=== PATIENT | male | born 1980 | race Caucasian/White ===

== ENCOUNTER 2017-06-29 19:37 | Emergency (ER) | payer MEDICAID, SELFPAY ==
[2017-06-29 19:38] VITALS: PULSE 121; RESP 18; TEMP 36.5; O2SAT 98; BMI 19.8
[2017-06-29] MEDS: Ziprasidone IM 20 MG/ML VIAL IM (20:00)
[2017-06-29 20:43] LABS: Absolute Lymphocyte Count 3.52 X10^3/ul (0.83-4.51); Absolute Neutrophil Count 6.4 X10^3/uL (2.0-7.7); Basophil# 0.02 X10^3/uL; Basophil% 0.2 % (0-1); Eosinophil# 0.09 X10^3/uL; Eosinophils% 0.8 % (0-5); Hematocrit 41.6 % (40-54); Hemoglobin 14.3 g/dl (13.0-16.5); Lymphocyte # 3.52 X10^3/ul (4.0); Lymphocyte % 32.4 % (19-41); Mean Corp Hgb Conc 34.4 g/gl (32-36); Mean Corpuscular Hgb 30.4 pg (27.0-32.0); Mean Corpuscular Volume 88.5 fL (80-94); Mean Platelet Vol. 9.4 fl (6.2-12.0); Monocyte# 0.88 X10^3/uL; Monocyte% 8.1 % (0-10); Neutrophil # 6.36 X10^3/uL (2.7-7.7); Neutrophil % 58.4 % (47-70); Platelet Count 276 K/mm3 (150-450); RBC Distribution Width CV 13.6 % (11.6-14.6); RBC Distribution Width SD 44.2 fl (35.1-43.9); White Blood Count 10.9 K/mm3 (4.4-11.0)
[2017-06-29 20:44] LABS: POSITIVE COUNT NO; POSITIVE DIFFERENTIAL NO; POSITIVE MORPHOLOGY NO
[2017-06-29 20:58] LABS: Anion Gap 11 (5-15); BUN 15 mg/dL (7-18); BUN/Creat Ratio 11.2 RATIO (10-20); Calcium,Total 9.5 mg/dL (8.5-10.1); Chloride 103 mmol/L (98-107); Creatinine, Serum 1.34 mg/dL (0.70-1.30); EST Glomerular Filtration Rate 64 mL/min (>60); Est Glom Filt Rate - Afr Amer 77 mL/min (>60); Estimated Creatinine Clearance 73.34 ml/min; Glucose 93 mg/dL (70-110); Potassium 4.1 mmol/L (3.5-5.1); Sodium Level 141 mmol/L (136-145); Thyroid Stim Hormone (TSH) 0.85 uIU/mL (0.358-3.74)
[2017-06-29 21:01] VITALS: BP 110/73; PULSE 86; RESP 14; O2SAT 96
[2017-06-29 21:07] LABS: Color, Urine Yellow (Yellow); Glucose, Dipstick Normal (Normal); Ketone-Dipstick 15 mg/dl (Negative); Leukocyte Esterase-Dipstick 500 /ul (Negative); Nitrite-Dipstick Negative (Negative); Occult Blood-Urine 50 /ul (Negative); Protein-Dipstick 30 mg/dl (Negative); Urine Bilirubin Dipstick Negative (Negative); Urine Clarity Sl. Cloudy (Clear); Urine Urobilinogen 1 mg/dl (Normal)
[2017-06-29 21:21] LABS: Amphetamine Urine VISTA POSITIVE (<1000 ng/mL); Barbiturate Urine VISTA NEGATIVE (< 200 ng/mL); Benzodiazepine Urine VISTA NEGATIVE (< 200 ng/mL); Cocaine Urine VISTA NEGATIVE (< 300 ng/mL); Ecstacy Urine VISTA POSITIVE (< 500 ng/mL); Methadone Urine VISTA NEGATIVE (< 300 ng/mL); PCP Urine VISTA NEGATIVE (< 25 ng/mL); THC Urine VISTA POSITIVE (< 50 ng/mL); Vista UDS pH Range 6
[2017-06-29 21:23] LABS: Red Blood Cells-Urine 5-10 SEEN /hpf (0-5)
[2017-06-29 21:34] LABS: Bacteria RARE /hpf (None Seen); Mucous, Urine 2+ /hpf (<or=2+); Squamous Epithelial Cells - UA 0-5 SEEN /hpf (0-5); White Blood Cells 25-50 SEEN /hpf (0-5)
--- NOTE | 2017-06-29 22:16 | ED.VISSUMM ---
- ER Visit Summary Date of Service: 06/29/17 Chief Complaint: Agitation History of Present Illness: The patient is a 37 M with agitation. The patient has a history of violence, overdose. Today someone [place] hitting himself with sticks and he was also hitting trees. He was barking like a dog and he was agitated. On arrival to the ED, the patient is posturing like he is going to run or possibly attacks someone. He is not providing any information or answering any questions. Physical Examination: Patient appears very tense and agitated. Sitting upright with his arms position like he is going to get up and run. He is yelling at officers. He would only tell me okay. He has an abrasion to his forehead which is linear, approximately 1 cm, superficial. No other obvious head trauma. Neck nontender. Heart regular. Lungs clear. Abdomen soft. Moves all extremities. Cranial nerves grossly intact. Test Results: EKG showed sinus rhythm at a rate of 89. No acute ischemia or infarction. CBC normal. BMP normal except for a creatinine of 1.3. Urinalysis shows a UTI. Culture sent. TSH normal. Alcohol normal. Urine drug screen shows MDMA, amphetamines, and THC. Emergency Department Course and Treatment: Patient was very agitated on arrival to the ED. He was treated with Geodon. He did rest after this and had no further behavioral issues. I treated his urinary tract infection with Rocephin. I do not believe this is causing his psychosis. He will need further psychiatric care. Crisis counselor was contacted, and at the time of dictation, the plan is to transfer him to [facility]. Treatment Plan: As above Disposition: Transfer to [facility] Impression: 1. Psychosis 2. UTI ED Disposition - Plan for ED Patient: Chief Complaint: Mental Health
--- NOTE | 2017-06-29 22:24 | ED.DCSUM_ITS ---
- ER Visit Summary Date of Service: 06/29/17 Chief Complaint: Agitation History of Present Illness: The patient is a 37 M with agitation. The patient has a history of violence, overdose. [place] himself with sticks and he was also hitting trees. He was barking like a dog and he was agitated. On arrival to the ED, the patient is posturing like he is going to run or possibly attacks someone. He is not providing any information or answering any questions. Physical Examination: Patient appears very tense and agitated. Sitting upright with his arms position like he is going to get up and run. He is yelling at officers. He would only tell me okay. He has an abrasion to his forehead which is linear, approximately 1 cm, superficial. No other obvious head trauma. Neck nontender. Heart regular. Lungs clear. Abdomen soft. Moves all extremities. Cranial nerves grossly intact. Test Results: EKG showed sinus rhythm at a rate of 89. No acute ischemia or infarction. CBC normal. BMP normal except for a creatinine of 1.3. Urinalysis shows a UTI. Culture sent. TSH normal. Alcohol normal. Urine drug screen shows MDMA, amphetamines, and THC. Emergency Department Course and Treatment: Patient was very agitated on arrival to the ED. He was treated with Geodon. He did rest after this and had no further behavioral issues. I treated his urinary tract infection with Rocephin. I do not believe this is causing his psychosis. He will need further psychiatric care. Crisis counselor was contacted, and at the time of dictation, the plan is to transfer him to [facility]. Treatment Plan: As above Disposition: Transfer to [facility] Impression: 1. Psychosis 2. UTI ED Disposition - Plan for ED Patient: Chief Complaint: Mental Health
[2017-06-29 23:58] VITALS: BP 100/73; PULSE 63; RESP 11; O2SAT 100
[2017-06-30] VITALS (22 sets, daily range): BP systolic 91–111; BP diastolic 65–80; PULSE 12–89; RESP 11–19; O2SAT 98–100
--- NOTE | 2017-06-30 01:22 | EKG12_ITS ---
Test Reason : Blood Pressure : / mmHG Vent. Rate : 089 BPM Atrial Rate : 089 BPM P-R Int : 138 ms QRS Dur : 086 ms QT Int : 374 ms P-R-T Axes : 072 071 062 degrees QTc Int : 455 ms Normal sinus rhythm with sinus arrhythmia Normal ECG Confirmed by CRISPIN WALLACE ([id number]), telegraph editor SARAH CHINCHILLA ([id number]) on 07/04/2017 10:59:21 AM Referred By: DC Confirmed By:CRISPIN WALLACE
[2017-06-30 02:28] LABS: AST(SGOT) 92 U/L (15-37); Alanine Aminotransfer ALT/SGPT 89 U/L (12-78); Albumin, Serum 4.5 g/dL (3.4-5.0); Alkaline Phosphatase 99 U/L (45-117); Bilirubin, Direct 0.28 mg/dL (0.00-0.30); Globulin 3.2 g/dL (2.3-3.5); Protein, Total 7.7 g/dL (6.4-8.2)
[2017-06-30] MEDS: Ziprasidone IM 20 MG/ML VIAL IM (03:16)
--- NOTE | 2017-06-30 12:54 | PCA ---
CALLED DIETARY FOR LUNCH ROOM 5 AT 12:53
[2017-06-30] MEDS: LORazepam 1 MG Tablet PO ×2 (17:13→18:17)
--- NOTE | 2017-06-30 18:00 | ED.RN ---
PT MORE AGITATED NOW. RESTLESS MOVEMENTS OF ARMS AND LEGS. DR. VALLE INFORMED. VERBAL ORDERS FOR MEDICATION GIVEN.
[2017-06-30] MEDS: DiphenhydrAMINE 25 MG Capsule 50 MG PO (19:48)
[2017-07-01] VITALS (18 sets, daily range): BP systolic 108–128; BP diastolic 67–80; PULSE 68–90; RESP 13–18; O2SAT 96–99
[2017-07-01] MEDS: Acetaminophen 500 MG Tablet 1000 MG PO (03:43)
--- NOTE | 2017-07-01 10:00 | ED.RN ---
Pao KRISHNAN FROM [facility]ISIS CALLED AND STATED PATIENT WAS UNDER MEDICAL REVIEW AT [facility].
[2017-07-01] MEDS: LORazepam 1 MG Tablet PO (12:50)
[2017-07-01 13:40] LABS: AST(SGOT) 48 U/L (15-37); Alanine Aminotransfer ALT/SGPT 68 U/L (12-78); Albumin, Serum 3.4 g/dL (3.4-5.0); Alkaline Phosphatase 122 U/L (45-117); Anion Gap 7 (5-15); BUN 8 mg/dL (7-18); BUN/Creat Ratio 9.8 RATIO (10-20); Calcium,Total 8.5 mg/dL (8.5-10.1); Chloride 106 mmol/L (98-107); Creatinine, Serum 0.82 mg/dL (0.70-1.30); EST Glomerular Filtration Rate 113 mL/min (>60); Est Glom Filt Rate - Afr Amer 136 mL/min (>60); Estimated Creatinine Clearance 119.85 ml/min; Globulin 3.4 g/dL (2.3-3.5); Glucose 108 mg/dL (70-110); Potassium 4.4 mmol/L (3.5-5.1); Protein, Total 6.8 g/dL (6.4-8.2); Sodium Level 140 mmol/L (136-145)
[2017-07-01 14:11] LABS: Mucous, Urine 0 SEEN /hpf (<or=2+); Red Blood Cells-Urine 0 SEEN /hpf (0-5)
[2017-07-01 14:14] LABS: Color, Urine Yellow (Yellow); Glucose, Dipstick Normal (Normal); Ketone-Dipstick Negative (Negative); Leukocyte Esterase-Dipstick 500 /ul (Negative); Nitrite-Dipstick Negative (Negative); Occult Blood-Urine 10 /ul (Negative); Protein-Dipstick Negative (Negative); Urine Bilirubin Dipstick Negative (Negative); Urine Clarity Clear (Clear); Urine Urobilinogen Normal (Normal)
--- NOTE | 2017-07-01 14:15 | ED.RN ---
ARIELLA IS HERE FROM [facility] TO REEVALUATE PATIENT FOR [facility] ADMISSION
[2017-07-01 14:44] LABS: Squamous Epithelial Cells - UA 0-5 SEEN /hpf (0-5); White Blood Cells 10-25 SEEN /hpf (0-5)
[2017-07-01 14:45] LABS: Bacteria RARE /hpf (None Seen)
[2017-07-01] MEDS: clonazePAM 1 MG Tablet PO (15:43)
--- NOTE | 2017-07-01 16:31 | ED.RN ---
Addendum entered by Azeem Yost 07/01/17 16:33: RELAYED THIS INFORMATION TO DR. JUARES. GOING TO CONTACT [facility] SO DR. JUARES CAN SPEAK WITH THEM Original Note: ARIELLA FROM [facility] CALLED AND STATED SHE TALKED TO [facility] REGARDING PATIENT'S ADMISSION. THEY ARE CONCERNED ABOUT LIVER ENZYMES GOING UP, THE STUFF IN HIS URINE AND THAT PATIENT'S CREATINE LEVELS ARE NOT NORMAL. THEY WOULD LIKE TO BE CALLED AND GIVEN AN EXPLANATION FOR THOSE RESULTS.
--- NOTE | 2017-07-01 16:46 | ED.RN ---
CALLED [facility] TO GET MORE INFORMATION ON WHAT EXACTLY THEY WANTED REGARDING PATIENT'S ADMISSION. SPOKE WITH RENAY AND SHE STATED THAT THE MEDICAL DOCTOR WAS GONE FOR THE DAY AND A DOC TO DOC COULD BE SET UP TOMORROW. SHE ALSO STATED THAT THEY DO NOT HAVE BEDS AT THIS TIME ANYWAY AND THAT A DOC TO DOC COULD BE DONE TOMORROW WHEN HER MEDICAL DOCTOR IS THERE. RELAYED THIS INFORMATION TO DR. JUARES AND HE SPOKE WITH ARIELLA FROM [facility].
[2017-07-02] VITALS (9 sets, daily range): BP systolic 105–129; BP diastolic 62–81; PULSE 71–81; RESP 14–20; O2SAT 97–99
[2017-07-02] MEDS: DiphenhydrAMINE 25 MG Capsule PO (04:32)
[2017-07-02] MEDS: levoFLOXacin 750 MG Tablet PO (06:23)
--- NOTE | 2017-07-02 08:30 | ED.RN ---
PT PLEASANT AND COOPERATIVE. FRUSTRATED THAT HE HAS NOT BEEN PLACED ANYWHERE YET. THIS NURSE CHECKED ON THE PT BREAKFAST. PT GIVEN COFFEE
[2017-07-02] MEDS: clonazePAM 1 MG Tablet PO (09:29)
[2017-07-02] MEDS: LORazepam 1 MG Tablet PO (09:29)
--- NOTE | 2017-07-02 10:30 | ED.RN ---
PT COOPERATIVE. UP TO THE BATHROOM AND RETURNED TO THE ROOM
--- NOTE | 2017-07-02 13:31 | ED.RN ---
PT TAKEN OUTSIDE BY [place] [employer] OFFICER RENÉE TO SMOKE PRIOR TO LEAVING [facility]. ONE PURPLE DUFFEL BAG AND ONE WHITE PT BELONGINGS BAG GIVEN TO EMS CREW.
== END 2017-07-02 13:37 ==
LOC: ED 01-01 20:58
PROVIDERS: Emergency Medicine; Emergency Provider Emergency Medicine
DX: F29 Unspecified psychosis not due to a substance or known physiological condition (principal); N39.0 Urinary tract infection, site not specified; S00.81XA Abrasion of other part of head, initial encounter; X58.XXXA Exposure to other specified factors, initial encounter; Y93.9 Activity, unspecified; Y92.9 Unspecified place or not applicable; F15.90 Other stimulant use, unspecified, uncomplicated; F12.90 Cannabis use, unspecified, uncomplicated; F16.90 Hallucinogen use, unspecified, uncomplicated
CPT/HCPCS: 80048; 80053; 80076; 80307; 80320; 81001; 84443; 85025; 87086; 93005; 96372; 99285; J7030; G0480; J3486

== ENCOUNTER 2018-01-01 19:43 | Emergency (ER) | payer SELFPAY ==
[2018-01-01 19:44] VITALS: PULSE 110; RESP 20; TEMP 36.7; O2SAT 98; BMI 18.4
--- NOTE | 2018-01-01 19:47 | ED.RN ---
PT WOULD NOT HOLD STILL LONG ENOUGH FOR THE BP.PT WAS PLACING HIS LEGS BEHIND HIS HEAD.
[2018-01-01 20:20] LABS: Absolute Lymphocyte Count 3.18 X10^3/ul (0.83-4.51); Absolute Neutrophil Count 11.4 X10^3/uL (2.0-7.7); Basophil# 0.02 X10^3/uL; Basophil% 0.1 % (0-1); Eosinophil# 0.01 X10^3/uL; Eosinophils% 0.1 % (0-5); Hematocrit 41.2 % (40-54); Hemoglobin 14.2 g/dl (13.0-16.5); Lymphocyte # 3.18 X10^3/ul (4.0); Lymphocyte % 20.3 % (19-41); Mean Corp Hgb Conc 34.5 g/gl (32-36); Mean Corpuscular Hgb 30.5 pg (27.0-32.0); Mean Corpuscular Volume 88.6 fL (80-94); Mean Platelet Vol. 8.9 fl (6.2-12.0); Monocyte# 1.04 X10^3/uL; Monocyte% 6.7 % (0-10); Neutrophil # 11.36 X10^3/uL (2.7-7.7); Neutrophil % 72.7 % (47-70); Platelet Count 280 K/mm3 (150-450); RBC Distribution Width CV 13.3 % (11.6-14.6); RBC Distribution Width SD 42.8 fl (35.1-43.9); Red Blood Count 4.65 M/mm3 (4.6-6.2); White Blood Count 15.6 K/mm3 (4.4-11.0)
[2018-01-01 20:21] LABS: POSITIVE COUNT NO; POSITIVE DIFFERENTIAL NO; POSITIVE MORPHOLOGY NO
--- NOTE | 2018-01-01 20:22 | ED.DCSUM_ITS ---
- ER Visit Summary Date of Service: 01/01/18 Chief Complaint: [] Walking barefoot poorly clothed shadow boxing History of Present Illness: The patient is a 37 M [] she was brought in by police apparently he was found walking barefoot with a stray dog he had a stick in his hand he was shadow boxing and otherwise making physical gestures. He denies being homicidal or suicidal. The patient indicates she has history of multiple psychiatric disorders, history of polysubstance drug abuse, he has not seen his physicians he is on no medications he is homeless, he denies suicidal or homicidal ideation he came in because the police insisted Physical Examination: [] In the room shadow boxing he will just shout out words he is directable his HEENT exam is unremarkable his neck is supple his lungs are clear heart tones are normal he has scattered abrasions to his feet and his hands were he has been walking barefoot neurologically he is awake he is alert moving all 4 extremities Test Results: [] Emergency Department Course and Treatment: [] At this time he appears to have mental health disorder polysubstance abuse history homelessness he is agreeing to provide screening labs and urinalysis, he will be given Ativan 2 mg p.o. for his agitation and I have asked mental health services to see him and determine disposition Treatment Plan: [] creatinines about 1.3 it has been that high before white count 15,000 he is received IV fluids his urine tox is pending, the patient has been seen by mental health services they are very familiar with him he does have underlying psychiatric disorder and polysubstance abuse, he is been admitted to [facility] in the past at this time there is seeing him, he will be pink slip, and plans are to send him to [facility] for further management and admission Disposition: [] Pending mental health evaluation Impression: [] Agitation, psychiatric disorder noncompliance, history of polydrug abuse homelessness This note was generated with [employer] dictation software. It may contain incorrect words, spelling, and punctuation that were not noted in review of the chart prior to signing ED Disposition - Plan for ED Patient: Chief Complaint: Mental Health Referrals: Care Physician,No Primary [Primary Care Provider] -
[2018-01-01 20:33] LABS: Anion Gap 17 (5-15); BUN 24 mg/dL (7-18); Calcium,Total 8.9 mg/dL (8.5-10.1); Chloride 99 mmol/L (98-107); Creatinine, Serum 1.33 mg/dL (0.70-1.30); EST Glomerular Filtration Rate 64 mL/min (>60); Est Glom Filt Rate - Afr Amer 78 mL/min (>60); Estimated Creatinine Clearance 68.97 ml/min; Glucose 88 mg/dL (74-106); Potassium 3.2 mmol/L (3.5-5.1); Sodium Level 139 mmol/L (136-145)
[2018-01-01] MEDS: LORazepam 1 MG Tablet 2 MG PO (20:37)
[2018-01-01 21:00] VITALS: RESP 20
[2018-01-01] MEDS: Ziprasidone IM 20 MG/ML VIAL IM (21:38)
--- NOTE | 2018-01-01 22:04 | EKG12_ITS ---
Test Reason : MENTAL HEALTH Blood Pressure : / mmHG Vent. Rate : 087 BPM Atrial Rate : 087 BPM P-R Int : 122 ms QRS Dur : 080 ms QT Int : 374 ms P-R-T Axes : 062 070 048 degrees QTc Int : 450 ms Normal sinus rhythm Normal ECG Confirmed by EMY SUNSHINE, JAZZY ([id number]), associate entertainment editor SARAH CHINCHILLA ([id number]) on 01/05/2018 2:50:12 PM Referred By: DR COPELAND Confirmed By:JAZZY QUEVEDO MD
[2018-01-01 22:25] LABS: AST(SGOT) 98 U/L (15-37); Alanine Aminotransfer ALT/SGPT 89 U/L (16-61); Albumin, Serum 4.8 g/dL (3.2-5.0); Alkaline Phosphatase 102 U/L (45-117); Bilirubin, Direct 0.46 mg/dL (0.00-0.30); Globulin 3.5 g/dL (2.2-4.2); Protein, Total 8.3 g/dL (6.4-8.2)
[2018-01-01] MEDS: 0.9% Normal Saline 1,000 ML 999 ML IV (22:25)
[2018-01-01 22:35] LABS: Amphetamine Urine VISTA POSITIVE (<1000 ng/mL); Barbiturate Urine VISTA NEGATIVE (< 200 ng/mL); Benzodiazepine Urine VISTA NEGATIVE (< 200 ng/mL); Cocaine Urine VISTA NEGATIVE (< 300 ng/mL); Ecstacy Urine VISTA NEGATIVE (< 500 ng/mL); Methadone Urine VISTA NEGATIVE (< 300 ng/mL); PCP Urine VISTA NEGATIVE (< 25 ng/mL); THC Urine VISTA POSITIVE (< 50 ng/mL); Vista UDS pH Range 6
[2018-01-01 23:26] VITALS: RESP 20
[2018-01-02] VITALS (11 sets, daily range): BP systolic 116–126; BP diastolic 64–79; PULSE 82–104; RESP 12–22; TEMP 36.8; O2SAT 95–98
[2018-01-02 01:51] LABS: Mucous, Urine 0 SEEN /hpf (<or=2+); Red Blood Cells-Urine 0 SEEN /hpf (0-5)
[2018-01-02 01:55] LABS: Color, Urine Yellow (Yellow); Glucose, Dipstick Normal (Normal); Leukocyte Esterase-Dipstick Negative /ul (Negative); Nitrite-Dipstick Negative (Negative); Occult Blood-Urine 10 /ul (Negative); Protein-Dipstick 15 mg/dl (Negative); Specific Gravity, Urine 1.025 (1.002-1.030); Urine Bilirubin Dipstick Negative (Negative); Urine Clarity Clear (Clear); Urine Urobilinogen 1 mg/dl (Normal)
[2018-01-02 02:02] LABS: Bacteria RARE /hpf (None Seen); Squamous Epithelial Cells - UA 0-5 SEEN /hpf (0-5); White Blood Cells 0-5 SEEN /hpf (0-5)
[2018-01-02 02:03] LABS: Ketone-Dipstick 150 mg/dl (Negative)
--- NOTE | 2018-01-02 02:50 | ED.RN ---
potassium po will be given when pt wakes up in the am. ativan order is prn per Dr. Gonzales
== END 2018-01-02 12:27 ==
PROVIDERS: Emergency Provider Emergency Medicine
DX: R45.1 Restlessness and agitation (principal); F99 Mental disorder, not otherwise specified; Z91.19 Patient's noncompliance with other medical treatment and regimen; F19.10 Other psychoactive substance abuse, uncomplicated; Z59.0 Homelessness; S90.812A Abrasion, left foot, initial encounter; S90.811A Abrasion, right foot, initial encounter; S60.512A Abrasion of left hand, initial encounter; S60.511A Abrasion of right hand, initial encounter; X58.XXXA Exposure to other specified factors, initial encounter; Y93.9 Activity, unspecified; Y92.9 Unspecified place or not applicable
CPT/HCPCS: 80048; 80076; 80307; 80320; 81001; 85025; 93005; 96360; 96372; 99284; J7030; A4216; G0480; J3486

== ENCOUNTER 2018-01-10 09:17 | Emergency (ER) | payer SELFPAY ==
[2018-01-10 09:20] VITALS: PULSE 108; RESP 16; TEMP 35.1; O2SAT 98; BMI 22.4
[2018-01-10 09:24] VITALS: BP 148/121; PULSE 120; RESP 18; O2SAT 97
[2018-01-10 10:27] VITALS: BP 151/121; PULSE 112; RESP 18; O2SAT 98
--- NOTE | 2018-01-10 10:27 | ED.VISSUMM ---
- ER Visit Summary Date of Service: 01/10/18 Chief Complaint: Abnormal behavior History of Present Illness: The patient is a 37 M who is brought in by the [place] [employer]. The patient reportedly was climbing a tree barefoot and then jumped from the tree to the roof of a house. They are he spent a couple hours cleaning gutters. When police were with him he tried taking a nail and pushing it through his lip. Patient states that he prefers to climb trees barefoot as it gets him closer to the tree. Patient denies any recent ingestion of mind altering substances. From review of the chart patient has a history of mental illness and drug abuse. Patient states he does not need a tetanus shot as he was not around any metal. He also states that he had a tetanus shot within the last 6 years. Please note that he was directable for them. Physical Examination: Temperature 95.2 heart rate of 120 respirations are 18 pulse ox 97% Initial blood pressure 148/121 however the patient was shivering during this time. Gen: Well-nourished well-developed patient is disheveled. Head: Normocephalic atraumatic Eyes: Perrl EOMI ENT: TMs clear no rhinorrhea moist mucous membranes Neck: Supple no lymphadenopathy no JVD nontender CVS: Regular rate rhythm no murmurs normal S1-S2 Respiratory: No distress clear to auscultation bilaterally chest nontender Abdomen: Soft nontender nondistended normal bowel sounds no masses Back: Nontender Extremity: Bilateral feet show some superficial abrasions. Feet are noticeably dirty however he was climbing a tree. Skin: Normal color no rash Neuro: alert orientated ?3 CN II-XII intact normal strength sensation reflexes gait cerebellar Psych: Patient denies suicidal homicidal ideation. Patient appears to be intermittently shadow boxing in the room. The patient has a flat affect. Emergency Department Course and Treatment: Basic blood work shows a mild leukocytosis. Urine is positive for methamphetamines and amphetamines marijuana. Once were cleansed and dressed. Patient has been cooperative up until his female significant other arise. Then he removed his dressings his IV and is getting dressed. His significant other states that she will care for him. Patient is not under arrest. He is not suicidal or homicidal. He is now normothermic. His slight tachycardia is due to his agitation. Patient will be discharged. Impression: 1. Methamphetamine abuse 2. Hypothermia 3. Bilateral feet abrasions This note was generated with [employer] dictation software. It may contain incorrect words, spelling, and punctuation that were not noted in review of the chart prior to signing ED Disposition - Plan for ED Patient: Disposition: Home or Assisted Living Chief Complaint: Mental Health Instructions: Understanding Methamphetamine Abuse and Addiction Referrals: Care Physician,No Primary [Primary Care Provider] - EIGHTY,ONE [STAFF PHYSICIAN] - As soon as possible
[2018-01-10] MEDS: 0.9% Normal Saline 1,000 ML 1000 ML IV (10:30)
[2018-01-10 11:19] LABS: Absolute Lymphocyte Count 1.89 X10^3/ul (0.83-4.51); Basophil# 0.01 X10^3/uL; Basophil% 0.1 % (0-1); Hematocrit 42.3 % (40-54); Hemoglobin 14.5 g/dl (13.0-16.5); Lymphocyte # 1.89 X10^3/ul (4.0); Lymphocyte % 14.5 % (19-41); Mean Corp Hgb Conc 34.3 g/gl (32-36); Mean Corpuscular Hgb 30.8 pg (27.0-32.0); Mean Corpuscular Volume 89.8 fL (80-94); Mean Platelet Vol. 8.8 fl (6.2-12.0); Monocyte# 1.16 X10^3/uL; Monocyte% 8.9 % (0-10); Neutrophil # 9.96 X10^3/uL (2.7-7.7); Neutrophil % 76.3 % (47-70); Platelet Count 240 K/mm3 (150-450); RBC Distribution Width CV 13.4 % (11.6-14.6); RBC Distribution Width SD 44.2 fl (35.1-43.9); Red Blood Count 4.71 M/mm3 (4.6-6.2); White Blood Count 13.1 K/mm3 (4.4-11.0)
[2018-01-10 11:20] LABS: POSITIVE COUNT NO; POSITIVE DIFFERENTIAL NO; POSITIVE MORPHOLOGY NO
[2018-01-10 11:31] LABS: Red Blood Cells-Urine 0 SEEN /hpf (0-5)
[2018-01-10 11:35] LABS: Color, Urine Yellow (Yellow); Glucose, Dipstick Normal (Normal); Ketone-Dipstick 15 mg/dl (Negative); Leukocyte Esterase-Dipstick 25 /ul (Negative); Nitrite-Dipstick Negative (Negative); Occult Blood-Urine Negative /ul (Negative); Protein-Dipstick 30 mg/dl (Negative); Specific Gravity, Urine 1.025 (1.002-1.030); Urine Bilirubin Dipstick Negative (Negative); Urine Clarity Sl. Cloudy (Clear); Urine Urobilinogen Normal (Normal)
[2018-01-10 11:42] LABS: Alcohol, Blood (Medical)-Serum < 3.0 mg/dL
[2018-01-10 11:43] LABS: Bacteria RARE /hpf (None Seen); Hyaline Cast 5-10 SEEN /lpf (0-5); Mucous, Urine 1+ /hpf (<or=2+); Squamous Epithelial Cells - UA 0-5 SEEN /hpf (0-5); White Blood Cells 0-5 SEEN /hpf (0-5)
[2018-01-10 11:50] LABS: ALB/GLOB Ratio 1.2 RATIO (0.9-2.4); AST(SGOT) 64 U/L (15-37); Alanine Aminotransfer ALT/SGPT 89 U/L (16-61); Albumin, Serum 4.4 g/dL (3.2-5.0); Alkaline Phosphatase 89 U/L (45-117); Anion Gap 11 (5-15); BUN 19 mg/dL (7-18); BUN/Creat Ratio 19.1 RATIO (10-20); Calcium,Total 8.9 mg/dL (8.5-10.1); Chloride 103 mmol/L (98-107); EST Glomerular Filtration Rate 90 mL/min (>60); Est Glom Filt Rate - Afr Amer 109 mL/min (>60); Estimated Creatinine Clearance 111.38 ml/min; Globulin 3.7 g/dL (2.2-4.2); Glucose 73 mg/dL (74-106); Potassium 4.4 mmol/L (3.5-5.1); Protein, Total 8.1 g/dL (6.4-8.2); Sodium Level 139 mmol/L (136-145)
[2018-01-10 11:51] LABS: Amphetamine Urine VISTA POSITIVE (<1000 ng/mL); Barbiturate Urine VISTA NEGATIVE (< 200 ng/mL); Benzodiazepine Urine VISTA NEGATIVE (< 200 ng/mL); Cocaine Urine VISTA NEGATIVE (< 300 ng/mL); Ecstacy Urine VISTA POSITIVE (< 500 ng/mL); Methadone Urine VISTA NEGATIVE (< 300 ng/mL); PCP Urine VISTA NEGATIVE (< 25 ng/mL); THC Urine VISTA POSITIVE (< 50 ng/mL); Vista UDS pH Range 5
[2018-01-10 12:39] VITALS: BP 151/96; PULSE 119; RESP 16; TEMP 36.8; O2SAT 96
--- NOTE | 2018-01-10 12:40 | ED.RN ---
Pt cooperative but has bizarre behavior.
[2018-01-10 13:25] VITALS: PULSE 98; RESP 16; O2SAT 98
== END 2018-01-10 13:26 | disposition home or self-care (01) ==
PROVIDERS: Emergency Provider Emergency Medicine
DX: F15.10 Other stimulant abuse, uncomplicated (principal); T68.XXXA Hypothermia, initial encounter; S90.812A Abrasion, left foot, initial encounter; S90.811A Abrasion, right foot, initial encounter; X58.XXXA Exposure to other specified factors, initial encounter; Y93.9 Activity, unspecified; Y92.9 Unspecified place or not applicable; F12.90 Cannabis use, unspecified, uncomplicated; Z72.0 Tobacco use
CPT/HCPCS: 36415; 80053; 80307; 80320; 81001; 85025; 99285; J7030; A4216; G0480